=== PATIENT | male | born 1975 | race Caucasian/White ===

== ENCOUNTER 2023-08-24 17:38 | Emergency (ER) | payer BC ==
[2023-08-24] MEDS ORDERED: Acetaminophen/oxyCODONE 325-5 MG Tab PO ONE (17:39)
[2023-08-24] MEDS ORDERED: Cephalexin 500 MG Cap PO ONE (17:39)
[2023-08-24] MEDS: Diphtheria,Pertussis(Acell),Tetanus Vaccine 0.5 ML Syringe IM ONE (19:35)
== END 2023-08-24 19:40 | disposition home or self-care (01) ==
LOC: FB.ED 17:38
DX: S62.602A Fracture of unspecified phalanx of right middle finger, initial encounter for closed fracture (principal); W23.1XXA Caught, crushed, jammed, or pinched between stationary objects, initial encounter
CPT/HCPCS: 64450; 73130-RT; 90471; 90715; 99283-25; 99284; A9270-GY

== ENCOUNTER 2025-08-03 10:06 | Emergency (ER) | payer BC ==
[2025-08-03] MEDS ORDERED: Sodium Chloride 0.9% 10 ML Syringe FLUSH PRN (10:07)
[2025-08-03] MEDS ORDERED: Nitroglycerin 0.4 MG Tab.SL SL PRN (10:09)
[2025-08-03 10:29] LABS: BASOPHILS ABSOLUTE AUTO 0.0 x10-3/uL (0.0-0.3); BASOPHILS PERCENT AUTO 0.8 % (0.3-3.8); EOSINOPHILS ABSOLUTE AUTO 0.1 x10-3/uL (0.0-0.6); EOSINOPHILS PERCENT AUTO 2.9 % (0.1-6.8); LYMPHOCYTES ABSOLUTE AUTO 1.6 x10-3/uL (0.5-4.5); LYMPHOCYTES PERCENT AUTO 33.5 % (15.8-45.3); MEAN PLATELET VOLUME 9.2 fL (6.7-11.0); MONOCYTES ABSOLUTE AUTO 0.4 x10-3/uL (0.0-1.2); MONOCYTES PERCENT AUTO 7.9 % (5.5-15.2); NEUTROPHILS ABSOLUTE AUTO 2.7 x10-3/uL (1.7-6.9); NEUTROPHILS PERCENT AUTO 54.9 % (40.3-71.8); PLATELET COUNT,PLT 219 x10(3)uL (117-477); RED BLOOD CELL COUNT 4.66 x10(6)uL (3.90-5.90); RED CELL DISTRIBUTION WIDTH 13.8 % (12.4-15.0); WHITE BLOOD CELL COUNT,WBC 4.9 x10-3/uL (3.2-10.1)
[2025-08-03 10:33] LABS: BLOOD UREA NITROGEN,BUN 12 mg/dL (7-18); CARBON DIOXIDE,CO2 29 mmol/L (21-32); CHLORIDE,CL 107 mmol/L (100-110); CREATININE 0.9 mg/dL (0.70-1.30); ESTIMATED GFR 103 mL/min (>60); GLUCOSE RANDOM 89 mg/dL (80-116); POTASSIUM,K 4.3 mmol/L (3.5-5.3); SODIUM,NA 143 mmol/L (135-145)
[2025-08-03 10:39] LABS: A/G RATIO 1.4; ALANINE AMINOTRANSFERASE,ALT 28 U/L (12-36); ASPARTATE AMNIOTRANSFERASE,AST 26 IU/L (5-25); BILIRUBIN TOTAL 0.7 mg/dL (0.1-1.3); PROTEIN TOTAL,TP 6.6 g/dL (6.0-8.0)
[2025-08-03 10:46] LABS: PRO B-TYPE NATRIUR PEPT,BNPPRO 51.0 pg/mL (<=125)
[2025-08-03 11:02] LABS: D-DIMER QUANTITATIVE 0.38 mg/LFEU (0.0-0.59); PTT,PARTIAL THROMBOPLSTIN TIME 26.7 SECONDS (24.4-33.2)
[2025-08-03 11:06] LABS: INR 1.01 (1.00-1.24)
== END 2025-08-03 11:50 | disposition home or self-care (01) ==
LOC: FB.ED 10:06
DX: R07.9 Chest pain, unspecified (principal); I10 Essential (primary) hypertension; Z79.899 Other long term (current) drug therapy; Z86.16 Personal history of COVID-19; Z90.49 Acquired absence of other specified parts of digestive tract
CPT/HCPCS: 71045; 80053; 83880; 84484; 85025; 85379; 85610; 85730; 93005; 99285; A9270; 93010; 99284